=== PATIENT | male | born 1965 | race Hispanic/Latino ===

== ENCOUNTER 2018-08-29 08:56 | Emergency (ER) | payer BC, OTHER ==
[~2018-08-29] VITALS: Ht 175.3 cm; Wt 98.4 kg
[~2018-08-29 08:56] MED LIST: LIBRIUM; PANTOPRAZOLE; ZOFRAN
--- OUTSIDE RECORDS SUMMARY | 2018-08-29 08:59 | XMS REPORT | Clinical Summary ---
Author Author MARIANN Weston [employer] [facility] Organization [facility] Address Unknown Phone Unavailable Care Team Providers Care Wet Trimmer Name Role Phone Beni Escobar PCP Allergies No Known Allergies Medications End Date Status Medication Sig Dispensed Refills Start Date Active b complex vitamins tablet Take 1 tablet 0 by mouth daily. Active milk thistle 175 mg Take 175 mg 0 tablet by mouth daily. Active baclofen 5 mg Take 5 mg by 90 tablet 6 TabIndications: Alcohol mouth 3 8 use (three) times daily. Active Problems Problem Noted Date Elevated liver enzymes 08/17/2018 Last Assessment & Plan: The liver enzymes were elevated in a hepatocellular pattern which most likely is secondary to alcohol. He does not exhibit signs and symptoms of advanced liver disease or cirrhosis. We will complete a comprehensive workup for other additional etiologies of abnormal liver enzymes including viral, autoimmune, metabolic and genetic. Abnormal liver diagnostic imaging 08/17/2018 Last Assessment & Plan: Ultrasound showed evidence of hepatocellular disease which is likely cirrhosis however further workup is needed. We will order an MRI of the liver. Liver biopsy may be required which was discussed with the patient and can be scheduled in the future Alcohol use 08/17/2018 Last Assessment & Plan: Prior history of heavy alcohol use. Last drink last night We advised him of the importance of ongoing abstinence from alcohol. We also discussed counseling and support groups and to refer to PCP for rehab facility. Prescription for 5mg baclofen TID. Obesity 08/17/2018 Last Assessment & Plan: Body mass index is 32.15 kg/(m^2).. Obesity is an established risk factor for vascular complications (ie coronary artery disease, cerebrovascular disease, peripheral vascular disease), osteoarthritis, pulmonary disease, as well as the development of non-alcoholic fatty liver disease and the risk for non-alcoholic steatohepatitis. Control of the risk factors will help to improve the fatty liver disease. We have recommended a structured weight loss program (10% body weight initially), along with dietary modifications and regular exercise for overall good health and to minimize the risk of obesity -related complications. Immunity status testing 08/17/2018 Last Assessment & Plan: All patients with chronic liver disease, regardless of etiology, should be immunized to prevent hepatitis A and hepatitis B if they are not already immune. We will test for immunity to both viruses and vaccine recommendations will follow. Screening for malignant neoplasm 08/17/2018 Last Assessment & Plan: Cirrhosis, regardless of etiology, is a risk factor for hepatocellular carcinoma (HCC), with an annual incidence of 1.5-7%. We recommend surveillance for HCC with abdominal imaging and alphafetoprotein every 6 months. MRI and AFP to be ordered today. Encounters Care Team Description Date Type Specialty Anshu Krueger MD Elevated liver enzymes; Abnormal liver diagnostic imaging; Screening for malignant neoplasm 08/27/2018 Hospital Radiology Encounter Anshu Krueger MD Elevated liver enzymes; Abnormal liver diagnostic imaging; Thrombocytopenia (HCC); Alcohol use; Class 1 obesity due to excess calories without serious comorbidity with body mass index (BMI) of 32.0 to 32.9 in adult; Immunity status testing; Screening for malignant neoplasm 08/17/2018 Office Visit Hepatology Anshu Krueger MD 08/14/2018 Abstract Hepatology after 08/28/2017 Family History Medical History Relation Name Comments Alzheimer's disease Father Diabetes Father Atrial fibrillation Mother Relation Name Status Comments Father Mother Alive Social History Date Tobacco Use Types Packs/Day Years Used Never Smoker Smokeless Tobacco: Never Used Alcohol Use Drinks/Week oz/Week Comments Yes >5 times/ wk Sex Assigned at Date Recorded Not on file Industry Job Start Date Occupation Not on file Not on file Not on file Travel End Travel History Travel Start No recent travel history available. Last Filed Vital Signs Time Taken Vital Sign Reading 08/17/2018 10:02 AM CDT Blood Pressure 143/82 08/17/2018 10:02 AM CDT Pulse 99 08/17/2018 10:02 AM CDT Temperature 36.4 C (97.5 F) 08/17/2018 10:02 AM CDT Respiratory Rate 18 08/17/2018 10:02 AM CDT Oxygen Saturation 98% - Inhaled Oxygen - Concentration 08/17/2018 10:02 AM CDT Weight 98.7 kg (217 lb 11.2 oz) 08/17/2018 10:02 AM CDT Height 175.3 cm (5' 9") 08/17/2018 10:02 AM CDT Body Mass Index 32.15 Plan of Treatment Care Team Description Date Type Specialty Anshu Krueger MD [address] [facility] [address] [place] [address] [phone] 09/15/2018 Office Visit Hepatology Health Maintenance Due Date Last Done Comments INFLUENZA VACCINE 07/27/2018 Procedures Comments Procedure Name Priority Date/Time Associated Diagnosis MR ABDOMEN WITH/WITHOUT Routine 08/27/2018 Elevated liver enzymes IV CONTRAST 1:50 PM CDT Abnormal liver diagnostic imaging Screening for malignant neoplasm CBC W/PLT COUNT & AUTO Routine 08/17/2018 Elevated liver enzymes DIFFERENTIAL 12:01 PM CDT SUBHASH TITER AND PATTERN Routine 08/17/2018 Elevated liver enzymes 12:01 PM CDT GAMMA GLUTAMYL Routine 08/17/2018 Elevated liver enzymes TRANSFERASE (GGT) 12:01 PM CDT IMMUNOGLOBULIN G (IGG) Routine 08/17/2018 Elevated liver enzymes 12:01 PM CDT ALPHA FETOPROTEIN (AFP), Routine 08/17/2018 Elevated liver enzymes TUMOR MARKER 12:01 PM CDT MITOCHONDRIA M2 ANTIBODY Routine 08/17/2018 Elevated liver enzymes (IGG) 12:01 PM CDT ACTIN (SMOOTH MUSCLE) Routine 08/17/2018 Elevated liver enzymes ANTIBODY, IGG 12:01 PM CDT ANTI-NUCLEAR ANTIBODY Routine 08/17/2018 Elevated liver enzymes (SUBHASH) 12:01 PM CDT CERULOPLASMIN Routine 08/17/2018 Elevated liver enzymes 12:01 PM CDT [id number]\\, Routine 08/17/2018 Elevated liver enzymes SERUM 12:01 PM CDT FERRITIN Routine 08/17/2018 Elevated liver enzymes 12:01 PM CDT IRON, TIBC, % SAT. Routine 08/17/2018 Elevated liver enzymes (WITHOUT FERRITIN) 12:01 PM CDT HEPATITIS C ANTIBODY Routine 08/17/2018 Elevated liver enzymes 12:01 PM CDT Immunity status testing HEPATITIS B CORE Routine 08/17/2018 Elevated liver enzymes ANTIBODY, TOTAL 12:01 PM CDT Immunity status testing HEPATITIS B SURFACE Routine 08/17/2018 Elevated liver enzymes ANTIBODY 12:01 PM CDT Immunity status testing HEPATITIS B SURFACE Routine 08/17/2018 Elevated liver enzymes ANTIGEN 12:01 PM CDT Immunity status testing HEPATITIS A ANTIBODY, IGG Routine 08/17/2018 Elevated liver enzymes 12:01 PM CDT Immunity status testing PROTHROMBIN TIME/INR Routine 08/17/2018 Elevated liver enzymes 12:01 PM CDT CBC W/PLT COUNT & AUTO Routine 08/17/2018 Elevated liver enzymes DIFFERENTIAL 12:01 PM CDT BILIRUBIN, DIRECT Routine 08/17/2018 Elevated liver enzymes 12:01 PM CDT COMPREHENSIVE METABOLIC Routine 08/17/2018 Elevated liver enzymes PANEL 12:01 PM CDT after 08/28/2017 Results * MR abdomen with/without IV contrast (08/27/2018 1:50 PM CDT) Narrative Performed At FINAL REPORT [facility] MRI of the abdomen. CLINICAL HISTORY: cirrhosis. COMPARISON STUDY: Outside ultrasound dated August 03, 2018. Technique: Multiplanar, multisequence imaging of the abdomen was acquired both pre and post administration of intravenous gadolinium in a dynamic fashion. No oral contrast was administered. FINDINGS: No pleural effusion is seen. The liver is nodular and cirrhotic in appearance. Fatty infiltration is noted. Post administration of intravenous gadolinium in a dynamic fashion, no suspicious enhancing masses are seen. The main portal vein is widely patent measuring 1.4 cm. A recanalized umbilical vein is seen with collateral vessels along the abdominal wall. The spleen, pancreas, adrenal glands and kidneys are unremarkable. The gallbladder and biliary tree are unremarkable. Mild ascites is seen. The aorta is normal in caliber. No suspicious adenopathy is seen. The visualized osseous structures demonstrate degenerative changes. IMPRESSION: 1. Nodular, cirrhotic appearing liver with no suspicious masses. Fatty infiltration is also noted. 2. Evidence of portal hypertension with a recanalized umbilical vein. 3. Mild ascites. Signed: Karlo Miguel MD Report Verified Date/Time:08/27/2018 15:11:48 Reading Location: [facility] [id number] Ortho Consult Reading Room Procedure Note Interface, External Ris In - 08/27/2018 3:13 PM CDT FINAL REPORT MRI of the abdomen. CLINICAL HISTORY: cirrhosis. COMPARISON STUDY: Outside ultrasound dated August 03, 2018. Technique: Multiplanar, multisequence imaging of the abdomen was acquired both pre and post administration of intravenous gadolinium in a dynamic fashion. No oral contrast was administered. FINDINGS: No pleural effusion is seen. The liver is nodular and cirrhotic in appearance. Fatty infiltration is noted. Post administration of intravenous gadolinium in a dynamic fashion, no suspicious enhancing masses are seen. The main portal vein is widely patent measuring 1.4 cm. A recanalized umbilical vein is seen with collateral vessels along the abdominal wall. The spleen, pancreas, adrenal glands and kidneys are unremarkable. The gallbladder and biliary tree are unremarkable. Mild ascites is seen. The aorta is normal in caliber. No suspicious adenopathy is seen. The visualized osseous structures demonstrate degenerative changes. IMPRESSION: 1. Nodular, cirrhotic appearing liver with no suspicious masses. Fatty infiltration is also noted. 2. Evidence of portal hypertension with a recanalized umbilical vein. 3. Mild ascites. Signed: Karlo Miguel MD Report Verified Date/Time: 08/27/2018 15:11:48 Reading Location: [facility] [id number] Ortho Consult Reading Room Performing Organization Address City/State/Zipcode Phone Number RIS * Hepatitis A antibody, IgG (08/17/2018 12:01 PM CDT) Hep A IgG Nonreactive Nonreactive [facility] Specimen Blood Performing Organization Address [facility] Hospital[facility] Phone Number [facility] [address] [place] [address] [facility] * Mitochondrial Antibodies, M2 (08/17/2018 12:01 PM CDT) Mitochondria M2 Ab <20.0 See Note: U [facility] Comment: INCORPORATED Reference Range: NEGATIVE:< OR=20.0 EQUIVOCAL: 20.1-24.9 POSITIVE:> OR=25.0 Specimen Blood Narrative Performed At Performing Lab [facility] [address] [place] [address] Amber Ayala MD, PhD, TOMMY Performing Organization Address [facility] Hospitalcode Phone Number [facility], [address] [place], [place] INCORPORATED [facility] [place] [address] * Iron, TIBC, % sat. (without ferritin) (08/17/2018 12:01 PM CDT) Iron 39 (L) 40 - 160 ug/dL [facility] TIBC 234 (L) 250 - 450 ug/dL [facility] Iron % Saturation 17 (L) 20 - 55 % [facility] Specimen Blood Performing Organization Address [facility] Hospitalconm Phone Number [address] [address] [facility] * CBC with platelet count + automated diff (08/17/2018 12:01 PM CDT) WBC 6.1 3.5 - 10.5 K/L [facility] RBC 4.09 (L) 4.63 - 6.08 M/L [facility] Hemoglobin 13.4 (L) 13.7 - 17.5 GM/DL [facility] Hematocrit 41.3 40.1 - 51.0 % [facility] MCV 101.0 (H) 79.0 - 92.2 fL [facility] MCH 32.8 (H) 25.7 - 32.2 pg [facility] MCHC 32.4 32.3 - 36.5 GM/DL [facility] RDW 19.6 (H) 11.6 - 14.4 % [facility] Platelets 81 (L) 150 - 450 K/CU MM [facility] MPV 11.1 9.4 - 12.4 fL [facility] nRBC 0 0 - 0 /100 WBC [facility] % Neutros 67 % [facility] % Lymphs 16 % [facility] % Monos 14 % [facility] % Eos 1 % [facility] % Baso 1 % [facility] # Neutros 4.10 1.78 - 5.38 K/L [facility] # Lymphs 0.99 (L) 1.32 - 3.57 K/L [facility] # Monos 0.87 (H) 0.30 - 0.82 K/L [facility] # Eos 0.08 0.04 - 0.54 K/L [facility] # Baso 0.03 0.01 - 0.08 K/L [facility] Immature 1 0 - 1 % [facility] Granulocytes-[facility] Specimen Blood Performing Organization Address City/[facility]/Zipcode Phone Number [facility] [address] [place] [address] [facility] * Hepatitis C antibody (08/17/2018 12:01 PM CDT) Hepatitis C Ab Nonreactive [facility] Specimen Blood Performing Organization Address City/[facility]/Zipcode Phone Number [place] [phone] [place] [address] [facility] * Actin (Smooth Muscle) Antibody, IgG (08/17/2018 12:01 PM CDT) Anti-Smooth Muscle Ab <20 See Note: U [facility] Comment: INCORPORATED Reference Range: <20 NEGATIVE > OR=20 POSITIVE Antibodies recognizing actin are the main component of smooth muscle antibodies associated with autoimmune liver disease. Actin antibodies are found in approximately 75% of patients with autoimmune hepatitis (AIH) type 1, approximately 65% of patients with autoimmune cholangitis, approximately 30% of patients with primary biliary cirrhosis, and approximately 2% of healthy people. High values are closely correlated with AIH type 1. Specimen Blood Narrative Performed At Performing Lab [facility] [address] [address] Amber Ayala MD, PhD, TOMMY Performing Organization Address City/[facility] Hospitalcode Phone Number [facility], [address] [place] [address] INCORPORATED [place] [id number] * Qoant-8-Oehowybzamz (08/17/2018 12:01 PM CDT) A-1 Antitrypsin 178.30 90.00 - 200.00 mg/dL [facility] Specimen Blood Performing Organization Address City/[facility]/Zipcode Phone Number [address] * SUBHASH Titer & Pattern (08/17/2018 12:01 PM CDT) SUBHASH Titer >=1:2560 [facility] SUBHASH Pattern Nucleolar [facility] Specimen Blood Performing Organization Address City/[facility]/Zipcode Phone Number [facility] [address] [place], [place] [phone] [address] * Ceruloplasmin (08/17/2018 12:01 PM CDT) Ceruloplasmin 23 18 - 36 mg/dL [facility] Comment: INCORPORATED Adults:Males: 18-36 mg/dL Fe males: 18-53 mg/dL Pediatrics: Males (mg/dL)Females (mg/dL) ------ 0-30 Days 8-25 3-28 31 Days-11 Month 15-481 5-43 1-3 Years2 5-5628 -54 4-6 Years2 9-56 -54 7-9 Years2 5 -48 10-12 Dcoqh03-18 21-48 13-15 [id number] 21-46 16-18 Cnqzb38-83 22-50 The pediatric ranges are derived from the following criteria: Brandin ISSA, Beatrice RIGGINS, Betty Quinones et al Pediatric reference ranges for Ubuj-2-Mopmexwjaimeq and ceruloplasmin. Clin. Chem 1997; 43:S1999 Pediatric Reference Ranges, 2nd., SF Brandin,et al. editors. [employer], [place], [place] 1997. Specimen Blood Narrative Performed At Performing Lab [facility] *[facility] [facility], [address] [place] [address] Stacie Saunders MD, PhD Performing Organization Address City/[facility]code Phone Number [facility], [address] [facility] [address] [address] * Alpha fetoprotein (AFP), tumor marker (08/17/2018 12:01 PM CDT) Alpha-Fetoprotein 4.7 <10.0 ng/mL [facility] Specimen Blood Performing Organization Address [facility] [place] [address] [phone] [place] [address] * Hepatitis B core antibody, total (08/17/2018 12:01 PM CDT) Hep B Core Total Ab Nonreactive [facility] Specimen Blood Performing Organization Address [facility] Hospitalcode Phone Number [address] [address] [facility] * Hepatitis B surface antibody (08/17/2018 12:01 PM CDT) Hep B S Ab <8.0 <8.0 mIU/mL [facility] Specimen Blood Performing Organization Address City/[facility]/Zipcode Phone Number [address] [address] [facility] * Hepatitis B surface antigen (08/17/2018 12:01 PM CDT) hepatitis B Surface Ag Nonreactive [facility] Specimen Blood Performing Organization Address City/[facility]/Zipcode Phone Number [address] [address] [facility] * Pro-time/INR (08/17/2018 12:01 PM CDT) Protime 17.9 (H) 11.7 - 14.7 seconds [facility] INR 1.5 <=5.9 [facility] Specimen Blood Narrative Performed At RECOMMENDED COUMADIN/WARFARIN INR THERAPY RANGES [facility] STANDARD DOSE: 2.0 - 3.0 Includes: PROPHYLAXIS for venous thrombosis, [facility] systemic embolization; TREATMENT for venous thrombosis and/or pulmonary embolus. HIGH RISK: Target INR is 2.5-3.5 for patients with mechanical heart valves. Performing Organization Address [facility] [place] [address] [phone] [place] [address] * Anti-Nuclear Antibody (SUBHASH) (08/17/2018 12:01 PM CDT) SUBHASH Positive (A) Negative [facility] Specimen Blood Narrative Performed At Test performed by IFA method. [facility] Performing Organization Address City/[facility] Hospitalcode Phone Number [address] [address] [facility] * Gamma Glutamyl Transferase (GGT) (08/17/2018 12:01 PM CDT) GGT 356 (H) 9 - 64 U/L [facility] Specimen Blood Performing Organization Address [facility]/Zipcode Phone Number [address] [address] [facility] * Immunoglobulin G (IgG) (08/17/2018 12:01 PM CDT) IgG 2,136 (H) 540 - 1,822 mg/dL [facility] Specimen Blood Performing Organization Address [facility] Hospitalcode Phone Number [address] [address] [phone] * Ferritin (08/17/2018 12:01 PM CDT) Ferritin 49 5 - 275 ng/mL [facility] Specimen Blood Performing Organization Address City/[facility] Hospital[facility] Phone Number [place] [phone] * Bilirubin, direct (08/17/2018 12:01 PM CDT) Bilirubin, Direct 1.2 (H) 0.1 - 0.5 mg/dL [facility] Specimen Blood Performing Organization Address [facility] Phone Number [address] * Comprehensive Metabolic Panel (08/17/2018 12:01 PM CDT) Protein, Total 8.2 6.0 - 8.3 gm/dL [facility] Albumin 3.2 (L) 3.5 - 5.0 g/dL [facility] Alkaline Phosphatase 136 40 - 150 U/L [facility] Total Bilirubin 1.8 (H) 0.2 - 1.2 mg/dL [facility] Sodium 140 136 - 145 meq/L [facility] Potassium 3.4 (L) 3.5 - 5.1 meq/L [facility] Chloride 102 98 - 107 meq/L [facility] CO2 27 22 - 29 meq/L [facility] BUN 4 (L) 7 - 21 mg/dL [facility] Creatinine 0.63 0.57 - 1.25 mg/dL [facility] Glucose 78 70 - 105 mg/dL [facility] Calcium 8.6 8.4 - 10.2 mg/dL [facility] AST 87 (H) 5 - 34 U/L [facility] ALT 22 6 - 55 U/L [facility] EGFR 133Comment: ESTIMATED GFR IS mL/min/1.73 sq m [facility] NOT ACCURATE CREATININE [facility] CLEARANCE IN PREDICTING GLOMERULAR FILTRATION RATE. ESTIMATED GFR IS NOT APPLICABLE FOR DIALYSIS PATIENTS. Specimen Blood Performing Organization Address City/State/Zipcode Phone Number [facility] [address] [place] [address] [facility] after 08/28/2017 Insurance Payer Benefit Subscriber ID Type Phone Address Plan / Group GONZALEZ [employer] xxxxxxxxxx [email or web address]
--- OUTSIDE RECORDS SUMMARY | 2018-08-29 08:59 | XMS REPORT ---
Author Author [facility] Address Unknown Phone Unavailable Care Team Providers Care Mental Health Social Worker Name Role Phone Noemi CAMP Unavailable Unavailable Problems This patient has no known problems. Allergies, Adverse Reactions, Alerts This patient has no known allergies or adverse reactions. Medications This patient has no known medications. Results Test Description Test Time Test Comments Text Results Atomic Results Result Comments MR, ABDOMEN, WITH 2018-08-27 15:11:00 Referring: Dr. Ketan Rogers FINAL REPORT MRI of the abdomen. CLINICAL [...] The visualized osseous structures demonstrate degenerative changes. IMPRESSION:1. Nodular, cirrhotic appearing liver with no suspicious masses. Fatty infiltration is also noted.2. Evidence of portal hypertension with a recanalized umbilical vein.3. Mild ascites. Signed: Karlo Miguel MDReport Verified Date/Time: 08/27/2018 15:11:48 Reading Location: [facility] C013X [facility] Consult Reading Room -NUCLEAR ANTIBODY (SUBHASH) 2018-08-20 05:10:00 ANTI-NUCLEAR ANTIBODY (SUBHASH) (BEAKER) (test bkac=506) Positive Negative Test performed by IFA method.SUBHASH TITER AND [id number] 05:10:00* Test Item Value Reference Range Comments SUBHASH TITER (BEAKER) (test brsv=2639) >=:2560 SUBHASH PATTERN (BEAKER) (test zsiw=7965) Nucleolar [id number] 16:25:00* Test Item Value Reference Range Comments FERRITIN (BEAKER) (test ryoc=394) 49 ng/mL 5-275 HEPATITIS B SURFACE [id number] 20:47:00* Test Item Value Reference Range Comments HEPATITIS B SURFACE ANTIGEN (2) (BEAKER) (test xamy=4438) Nonreactive Nonreactive HEPATITIS B SURFACE [id number] 18:06:00* Test Item Value Reference Range Comments HEPATITIS B SURFACE ANTIBODY (BEAKER) (test qnng=442) < mIU/mL <8.0 ALPHA FETOPROTEIN (AFP), TUMOR [id number] 18:00:00* Test Item Value Reference Range Comments ALPHA-FETOPROTEIN (BEAKER) (test bcvh=9662) 4.7 ng/mL <10.0 HEPATITIS B CORE ANTIBODY, [id number] 18:00:00* Test Item Value Reference Range Comments HEPATITIS B CORE TOTAL ANTIBODY (BEAKER) (test fshd=686) Nonreactive Nonreactive HEPATITIS A ANTIBODY, [id number] 18:00:00* Test Item Value Reference Range Comments HEPATITIS A IGG ANTIBODY (BEAKER) (test oosu=2890) Nonreactive Nonreactive HEPATITIS C [id number] 17:57:00* Test Item Value Reference Range Comments HEPATITIS C ANTIBODY (BEAKER) (test pddv=650) Nonreactive Nonreactive IMMUNOGLOBULIN G (IGG)2018-08-17 17:16:00* Test Item Value Reference Range Comments IMMUNOGLOBULIN G (IGG) (BEAKER) (test glkd=753) 2136 mg/dL 540-1822 IRON, TIBC, % SAT. (WITHOUT FERRITIN)2018-08-17 17:16:00* Test Item Value Reference Range Comments IRON (BEAKER) (test nwwi=213) 39 ug/dL 40-160 TOTAL IRON BINDING CAPACITY (BEAKER) (test cjyr=397) 234 ug/dL 250-450 IRON % SATURATION (2) (BEAKER) (test xrqj=8115) 17 % 20-55 [id number] 16:35:00* Test Item Value Reference Range Comments ALPHA-1 ANTITRYPSIN (BEAKER) (test vifb=975) 178.30 mg/dL 90.00-200.00 GAMMA GLUTAMYL TRANSFERASE (GGT)2018-08-17 16:27:00* Test Item Value Reference Range Comments GAMMA GLUTAMYL TRANSFERASE (BEAKER) (test asnu=707) 356 U/L 9-64 BILIRUBIN, [id number] 16:27:00* Test Item Value Reference Range Comments BILIRUBIN DIRECT (BEAKER) (test ggdy=495) 1.2 mg/dL 0.1-0.5 COMPREHENSIVE METABOLIC [id number] 16:27:00* Test Item Value Reference Range Comments TOTAL PROTEIN (BEAKER) (test gptb=141) 8.2 gm/dL 6.0-8.3 ALBUMIN (BEAKER) (test ofpu=8731) 3.2 g/dL 3.5-5.0 ALKALINE PHOSPHATASE (BEAKER) (test jvny=915) 136 U/L 40-150 BILIRUBIN TOTAL (BEAKER) (test zaug=118) 1.8 mg/dL 0.2-1.2 SODIUM (BEAKER) (test vffj=167) 140 meq/L 136-145 POTASSIUM (BEAKER) (test ygma=470) 3.4 meq/L 3.5-5.1 CHLORIDE (BEAKER) (test ykfz=694) 102 meq/L 98-107 CO2 (BEAKER) (test rvtp=243) 27 meq/L 22-29 BLOOD UREA NITROGEN (BEAKER) (test riwk=839) 4 mg/dL 7-21 CREATININE (BEAKER) (test ddxn=085) 0.63 mg/dL 0.57-1.25 GLUCOSE RANDOM (BEAKER) (test osto=884) 78 mg/dL 70-105 CALCIUM (BEAKER) (test yyep=886) 8.6 mg/dL 8.4-10.2 AST (SGOT) (BEAKER) (test zmzp=930) 87 U/L 5-34 ALT (SGPT) (BEAKER) (test lwyy=811) 22 U/L 6-55 EGFR (BEAKER) (test hahb=8592) 133 mL/min/1.73 sq m ESTIMATED GFR IS NOT ACCURATE CREATININE CLEARANCE IN PREDICTING GLOMERULAR FILTRATION RATE. ESTIMATED GFR IS NOT APPLICABLE FOR DIALYSIS PATIENTS. PROTHROMBIN [id number] 16:00:00* Test Item Value Reference Range Comments PROTIME (BEAKER) (test rzls=916) 17.9 seconds 11.7-14.7 INR (BEAKER) (test tisc=252) 1.5 <=5.9 RECOMMENDED COUMADIN/WARFARIN INR THERAPY RANGESSTANDARD DOSE: 2.0 - 3.0 Inclu gwen: PROPHYLAXIS for venous thrombosis, systemic embolization; TREATMENT for deangelo ous thrombosis and/or pulmonary embolus.HIGH RISK: Target INR is 2.5-3.5 for pat ients with mechanical heart valves.CBC W/PLT COUNT & AUTO [id number] 15:51:00* Test Item Value Reference Range Comments WHITE BLOOD CELL COUNT (BEAKER) (test zepl=735) 6.1 K/ L 3.5-10.5 RED BLOOD CELL COUNT (BEAKER) (test phuf=602) 4.09 M/ L 4.63-6.08 HEMOGLOBIN (BEAKER) (test szqa=224) 13.4 GM/DL 13.7-17.5 HEMATOCRIT (BEAKER) (test mdso=140) 41.3 % 40.1-51.0 MEAN CORPUSCULAR VOLUME (BEAKER) (test pkic=284) 101.0 fL 79.0-92.2 MEAN CORPUSCULAR HEMOGLOBIN (BEAKER) (test gvpo=867) 32.8 pg 25.7-32.2 MEAN CORPUSCULAR HEMOGLOBIN CONC (BEAKER) (test ilws=464) 32.4 GM/DL 32.3-36.5 RED CELL DISTRIBUTION WIDTH (BEAKER) (test kpsv=412) 19.6 % 11.6-14.4 PLATELET COUNT (BEAKER) (test ifaf=545) 81 K/CU MM 150-450 MEAN PLATELET VOLUME (BEAKER) (test xwiz=013) 11.1 fL 9.4-12.4 NUCLEATED RED BLOOD CELLS (BEAKER) (test eofp=060) 0 /100 WBC 0-0 NEUTROPHILS RELATIVE PERCENT (BEAKER) (test qaeb=603) 67 % LYMPHOCYTES RELATIVE PERCENT (BEAKER) (test lmma=089) 16 % MONOCYTES RELATIVE PERCENT (BEAKER) (test mues=716) 14 % EOSINOPHILS RELATIVE PERCENT (BEAKER) (test wxse=936) 1 % BASOPHILS RELATIVE PERCENT (BEAKER) (test omxm=738) 1 % NEUTROPHILS ABSOLUTE COUNT (BEAKER) (test kbjl=826) 4.10 K/ L 1.78-5.38 LYMPHOCYTES ABSOLUTE COUNT (BEAKER) (test fhbi=003) 0.99 K/ L 1.32-3.57 MONOCYTES ABSOLUTE COUNT (BEAKER) (test rnsb=816) 0.87 K/ L 0.30-0.82 EOSINOPHILS ABSOLUTE COUNT (BEAKER) (test uxii=636) 0.08 K/ L 0.04-0.54 BASOPHILS ABSOLUTE COUNT (BEAKER) (test yagx=350) 0.03 K/ L 0.01-0.08 IMMATURE GRANULOCYTES-RELATIVE PERCENT (BEAKER) (test sdmj=6513) 1 % 0-1
[2018-08-29] MEDS ORDERED: PANTOPRAZOLE 40 MG 10ML VIAL IV NR (09:30)
[2018-08-29 09:55] LABS: BASOPHILS % 0.6 % (0.0-1.0); EOSINOPHILS # (AUTO) 0.1 (0.0-0.4); HEMATOCRIT 40.1 % (38.2-49.6); HEMOGLOBIN 13.4 g/dL (14.0-18.0); LYMPHOCYTES # (AUTO) 0.9 (1.0-3.2); LYMPHOCYTES % 13.3 % (18.0-39.1); MEAN CORPUSCULAR HEMOGLOBIN 32.8 pg (28-32); MEAN CORPUSCULAR HGB CONC 33.4 g/dL (31-35); MEAN CORPUSCULAR VOLUME 98.3 fL (81-99); MONOCYTES # (AUTO) 0.9 (0.2-0.8); MONOCYTES % 12.3 % (4.4-11.3); PLATELET COUNT 68 x10e3/uL (140-360); RED BLOOD COUNT 4.08 x10e6/uL (4.3-5.7); RED CELL DISTRIBUTION WIDTH 18.4 % (11.7-14.4)
[2018-08-29 09:59] LABS: INR 1.31; PROTHROMBIN TIME 17.4 seconds (11.9-14.5)
[2018-08-29 10:00] LABS: PARTIAL THROMBOPLASTIN TIME 43.5 seconds (23.8-35.5)
[2018-08-29 10:08] LABS: ALANINE AMINOTRANSFERASE 23 IU/L (0-55); ALBUMIN/GLOBULIN RATIO 0.6 (0.8-2.0); ALKALINE PHOSPHATASE 92 IU/L (40-150); ANION GAP 14.3 mmol/L (8-16); BLOOD UREA NITROGEN < 5 mg/dL (7-26); CALCIUM 8.8 mg/dL (8.4-10.2); CARBON DIOXIDE 25 mmol/L (22-29); CHLORIDE 102 mmol/L (98-107); CREATINE KINASE 70 IU/L (30-200); CREATININE, SERUM 0.62 mg/dL (0.72-1.25); EST GLOMERULAR FILTRATION RATE > 60 ML/MIN (60-); GLUCOSE 111 mg/dL (74-118); LIPASE 41 U/L (8-78); MAGNESIUM 1.7 MG/DL (1.3-2.1); POTASSIUM 3.3 mmol/L (3.5-5.1); SODIUM 138 mmol/L (136-145)
[2018-08-29 10:09] LABS: BUN/CREATININE RATIO 8 (6-25)
[2018-08-29 10:16] LABS: B-TYPE NATRIURETIC PEPTIDE2 120.1 pg/mL (0-100)
[2018-08-29 10:27] LABS: THYROID STIMULATING HORMONE 2.897 uIU/mL (0.350-4.940)
--- NOTE | 2018-08-29 10:27 | Diagnostic Imaging Report ---
EXAM: XR CHEST 1 VIEW DATE: 08/29/2018 9:17 AM INDICATION: Mental status change COMPARISON: None FINDINGS: Lines and Tubes: None Heart and Mediastinum: Accentuated by low lung lungs. Lungs and Pleura: Elevated right hemidiaphragm with patchy basilar opacities. Questionable opacity right apex. Bones and Soft Tissues: No acute findings. IMPRESSION: 1. Questionable opacity right apex may represent overlapping osseous structures. Follow-up 2 view chest x-ray with deep inspiration recommended. 2. Patchy basilar opacities could represent atelectasis, aspiration, or pneumonia. Follow-up recommended. Signed by: Dr. Marco Austin MD on 08/29/2018 10:23 AM
[2018-08-29] MEDS ORDERED: DEXAMETHASONE SOD PHOS 10 MG/1 ML VIAL IV NR (10:45)
--- NOTE | 2018-08-29 10:47 | Diagnostic Imaging Report ---
History: Altered mental status Comparison studies: None Technique: Axial images were obtained from the skull base to the vertex. Coronal and sagittal images reconstructed from the axial data. Dose modulation, iterative reconstruction, and/or weight based adjustment of the mA/kV was utilized to reduce the radiation dose to as low as reasonably achievable. Findings: Parenchyma: In the left parieto-occipital parenchyma centered around the parieto-occipital fissure there is a low-density rounded lesion measuring approximately 3 cm (axial series 403, image 23) with adjacent vasogenic edema and local effacement of the overlying sulci. Minimal mass effect on the atrium of the left lateral ventricle. There is a small focus of hyperdensity posterior superiorly (sagittal series 400, image 38, coronal series 401, image 61) which may be a small focus of hemorrhage versus early mineralization. No CT evidence of an acute intracranial infarct, midline shift, or hydrocephalus. Scalp/skull: Lucencies within the biparietal diploic spaces (series 302, image 26) have well-defined edges. Extra-axial spaces: No fluid collections. Sulci/ventricles: Moderate prominence. Sellar/suprasellar region: No abnormalities. Craniocervical junction: Patent foramen magnum. No Chiari one malformation. Incidental findings: None Impression: 1. There is a 3 cm low-density lesion in the parietal occipital lobe with mild adjacent vasogenic edema. Small recent hemorrhagic component along the superior aspect is noted. Differential for this lesion includes resolving hematoma, primary or secondary neoplasm further characterization with contrast-enhanced MRI. 2. Lucencies within the diploic space in the biparietal calvarium likely represent benign findings such as hemangioma. These can be evaluated on future MRI. 3. Moderate parenchymal volume loss. Findings discussed with Dr. Jose R Esquivel by Dr. Segal via telephone at 1025 hours on 08/29/2018. This is a preliminary report was provided by the neuroradiology fellow, Dr. Migel Segal. Attending over read to follow. Signed by: Dr. Shannen Montoya M.D. on 08/29/2018 11:34 AM
[2018-08-29 10:51] LABS: ACETAMINOPHEN < 3 ug/mL (10-30); SALICYLATE < 5.0 mg/dL (0-30)
[2018-08-29] MEDS ORDERED: LEVETIRACETAM 500MG/5ML VIAL 1,000 MG in SODIUM CHLORIDE 0.9% 100 ML 100 ML IV ONE (11:00)
[2018-08-29 11:25] LABS: CLARITY,URINE CLEAR (CLEAR); COLOR,URINE YELLOW (YELLOW)
[2018-08-29 11:26] LABS: BILIRUBIN,URINE NEGATIVE (NEGATIVE); KETONES,URINE 1+ (NEGATIVE); LEUKOCYTE ESTERASE ,URINE NEGATIVE (NEGATIVE); NITRITE,URINE NEGATIVE (NEGATIVE); PROTEIN,URINE DIPSTICK NEGATIVE (NEGATIVE); URINE UROBILINOGEN 1 mg/dL (0.2 - 1)
[2018-08-29 11:28] LABS: AMPHETAMINES SCREEN,URINE NEGATIVE (NEGATIVE); BENZODIAZEPINES SCREEN,URINE NEGATIVE (NEGATIVE); PHENCYCLIDINE SCREEN,URINE NEGATIVE (NEGATIVE)
[2018-08-29 11:51] LABS: BACTERIA,URINE FEW /HPF; EPITHELIAL CELLS,URINE FEW /LPF; MUCUS,URINE FEW (RARE); RBC,URINE 0-5 /HPF (0-5); WBC,URINE (MAN) 0-5 /HPF (0-5)
== END 2018-08-29 12:59 | disposition other institution (70) ==
LOC: ER 08:56
DX: R22.0 Localized swelling, mass and lump, head (principal); K70.30 Alcoholic cirrhosis of liver without ascites; F10.129 Alcohol abuse with intoxication, unspecified
CPT/HCPCS: 36415; 51700; 70450; 71045; 80053; 80307; 80320; 80329 ×2; 81001; 82140; 82550; 82553; 83605; 83690; 83735; 83880; 84443; 84484; 85025; 85610; 85730; 86850; 86900; 87086; 93005; 99284; J1100